=== PATIENT | female | born 1995 | race Two or more races ===

== ENCOUNTER 2021-12-20 11:26 | Emergency (ER) | payer OTHER ==
[~2021-12-20] VITALS: Ht 157.5 cm; Wt 76.2 kg
--- NOTE | 2021-12-20 11:30 | NUR ---
BIB therapist/insurance case manager for suicidal ideation, plan is to OD herself. Denies having auditory or visual hallucination. Denies HI. In room air and denies SOB. Respiration regular and unlabored. Denies pain. Her therapist at the bedside. Will continue to monitor the patient.
[2021-12-20 11:54] LABS: BASOPHILS % (AUTO) 0.5 % (0.0-2.0); EOSINOPHILS % (AUTO) 2.4 % (0.0-6.0); HEMATOCRIT 33 % (33-45); HEMOGLOBIN 9.4 g/dL (11.5-14.8); LYMPHOCYTES # (AUTO) 2.6 K/uL (0.8-4.8); LYMPHOCYTES % (AUTO) 37.2 % (20.0-44.0); MEAN CORPUSCULAR HGB CONC 29 g/dl (31.0-36.0); MEAN CORPUSCULAR VOLUME 68 fL (82-100); MONOCYTES # (AUTO) 0.4 K/uL (0.1-1.30); MONOCYTES % (AUTO) 6.1 % (2.0-12.0); NEUTROPHILS # (AUTO) 3.8 K/uL (1.8-8.9); NEUTROPHILS % (AUTO) 53.8 % (43.0-81.0); PLATELET COUNT (AUTO) 338 K/uL (150-450); WHITE BLOOD COUNT (AUTO) 7.1 K/uL (4.3-11.0)
[2021-12-20 12:13] LABS: BILIRUBIN,URINE NEGATIVE (NEGATIVE); COLOR,URINE YELLOW (YELLOW); LEUKOCYTE ESTERASE ,URINE NEGATIVE (NEGATIVE); NITRITE, URINE NEGATIVE (NEGATIVE); PROTEIN,URINE NEGATIVE (NEGATIVE); UGLUCOSE NEGATIVE (NEGATIVE); UROBILINOGEN,URINE 0.2 EU/dL (0.2)
[2021-12-20 12:17] LABS: ALANINE AMINOTRANSFERASE 60 U/L (12-78); ALBUMIN 3.9 g/dL (3.4-5.0); ALCOHOL, BLOOD < 3 mg/dL (0-0); ALKALINE PHOSPHATASE 119 U/L (46-116); ASPARTATE AMINOTRANSFERASE 18 U/L (15-37); BILIRUBIN,DIRECT 0.1 mg/dL (0.0-0.2); BILIRUBIN,TOTAL 0.6 mg/dL (0.2-1.0); CALCIUM, SERUM 8.4 mg/dL (8.5-10.1); CARBON DIOXIDE 27 mmol/L (21-32); CHLORIDE 104 mmol/L (98-107); CREATININE 0.8 mg/dL (0.6-1.3); GLUCOSE 110 mg/dL (74-106); POTASSIUM 4.4 mmol/L (3.5-5.1); SODIUM SERUM 137 mmol/L (136-145); TOTAL PROTEIN, SERUM 8.1 g/dL (6.4-8.2); UREA NITROGEN, BLOOD 13 mg/dL (7-18)
[2021-12-20 12:23] LABS: ACETAMINOPHEN 0 ug/ml (10-30)
--- NOTE | 2021-12-20 12:34 | NUR ---
THE PATIENT REFUSED LUNCH. OFFERED JUICES AND THE PATIENT AGREED. THERAPIST AT THE BEDSIDE AT ALL TIME. WILL CONTINUE TO MONITOR THE PATIENT.
--- NOTE | 2021-12-20 13:04 | NUR ---
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
--- NOTE | 2021-12-20 15:55 | NUR ---
GEE called [facility] and per Intake pt. has been accepted under the are of Dr. Nguyen. Nurse to nurse report can be given by calling [phone]#[phone]. [facility] will call ED regarding transportation details.
--- NOTE | 2021-12-20 15:57 | NUR ---
STEPHEN MORELOS NURSING CLERK 1700.
--- NOTE | 2021-12-20 16:00 | NUR ---
THE PATIENT IS TRANSFERED TO BED 15. SITTER AT THE BEDSIDE.
--- NOTE | 2021-12-20 16:16 | NUR ---
THE PATIENT IS TRANSFERED TO [facility] IN [place] VIA ARRANGED TRASNPO.
--- NOTE | 2021-12-20 16:16 | NUR ---
REPORT GIVEN TO NURSE VÁZQUEZ FROM EMILY MORELOS
[2021-12-20 16:24] VITALS: BP 121/63
== END 2021-12-20 16:24 ==
LOC: ER 11:26
DX: R45.851 Suicidal ideations (principal); F31.9 Bipolar disorder, unspecified; F12.90 Cannabis use, unspecified, uncomplicated; D50.9 Iron deficiency anemia, unspecified; Z20.822 Contact with and (suspected) exposure to COVID-19; J45.909 Unspecified asthma, uncomplicated; F41.9 Anxiety disorder, unspecified
CPT/HCPCS: 36415; 80048; 80076; 80143; 80307; 80320; 81003; 84703; 85007; 85025; 87426; 99285; C9803; G0480